=== PATIENT | male | born 1960 ===

== ENCOUNTER 2021-09-26 07:24 | Day surgery (SDC) | payer OTHER ==
[~2021-09-26] VITALS: Ht 167.6 cm; Wt 83.0 kg
[2021-09-26] MEDS ORDERED: NAPR500 PO (07:49)
[2021-09-26] MEDS ORDERED: AMIT25 PO (07:50)
[2021-09-26] MEDS ORDERED: CYCL10 (07:50)
[2021-09-26] MEDS ORDERED: OMEP20ER PO (07:50)
--- NOTE | 2021-09-26 07:53 | NUR ---
09/26/21 Huang Alfaro CALL LIGHT WITHIN REACH.
== END 2021-09-26 09:54 | disposition home or self-care (01) ==
LOC: ORSCSDS 07:24
PROVIDERS: Orthopaedic Surgery
PROC: 01S40ZZ Reposition Ulnar Nerve, Open Approach (ICD-10-PCS; principal; 2021-09-26 08:45)
PROC: 01N50ZZ Release Median Nerve, Open Approach (ICD-10-PCS; principal; 2021-09-26 08:45)
DX: G56.01 Carpal tunnel syndrome, right upper limb (principal); G56.21 Lesion of ulnar nerve, right upper limb; K21.9 Gastro-esophageal reflux disease without esophagitis; Z79.899 Other long term (current) drug therapy
CPT/HCPCS: J0690; J1100; J1885; J2250; J2405; J2704; J2795; J3010; J7120

== ENCOUNTER 2023-07-29 06:25 | Day surgery (SDC) | payer OTHER ==
[~2023-07-29] VITALS: Ht 165.1 cm; Wt 81.6 kg
[~2023-07-29 06:25] MED LIST: AMIT25 PO; CYCL10; NAPR500 PO; OMEP20ER PO
[2023-07-29 09:44] VITALS: BP 149/85
== END 2023-07-29 10:10 | disposition home or self-care (01) ==
LOC: ORSCSDS 06:25
PROVIDERS: Orthopaedic Surgery
PROC: 01N50ZZ Release Median Nerve, Open Approach (ICD-10-PCS; principal; 2023-07-29 07:30)
PROC: 01S40ZZ Reposition Ulnar Nerve, Open Approach (ICD-10-PCS; principal; 2023-07-29 07:30)
PROC: 0LN80ZZ Release Left Hand Tendon, Open Approach (ICD-10-PCS; principal; 2023-07-29 07:30)
DX: G56.22 Lesion of ulnar nerve, left upper limb (principal); G56.02 Carpal tunnel syndrome, left upper limb; M65.332 Trigger finger, left middle finger; K21.9 Gastro-esophageal reflux disease without esophagitis; Z79.899 Other long term (current) drug therapy
CPT/HCPCS: A9270; J0690; J2704; J3010; J7120